=== PATIENT | male | born 1945 | race Hispanic/Latino ===

== ENCOUNTER 2022-03-31 09:34 | Outpatient (CLI) | payer MEDICARE ==
--- NOTE | 2022-03-31 12:18 | Ultrasound Report ---
US extremity nonvascular RT INDICATION / CLINICAL INFORMATION: ENLARGED LYMPH NODE. COMPARISON: None available. TECHNIQUE: Limited grayscale and color doppler imaging of the right groin area of concern. FINDINGS: Multiple lymph nodes are visualized in the right groin measuring up to 8 mm in short axis dimension w ith reniform morphology and prominent fatty sarah. IMPRESSION: 1. Multiple lymph nodes are visualized in the right groin area of concern without suspicious features or pathologic enlargement. Scribed by: Iris Calvin RDMS, BEN, CAITLIN Scribed: 03/31/2022 10:14 AM I have reviewed the images, agree with this report, and edited this report as needed. Signer Name: Donn Will MD Signed: 03/31/2022 12:14 PM Workstation Name: [id number]
== END 2022-03-31 09:35 | disposition home or self-care (01) ==
LOC: US 09:34
PROVIDERS: ATTEND Internal Medicine Cardiovascular Disease
DX: R59.9 Enlarged lymph nodes, unspecified (principal); I10 Essential (primary) hypertension; I25.10 Atherosclerotic heart disease of native coronary artery without angina pectoris; R07.2 Precordial pain; Z87.898 Personal history of other specified conditions; Z98.61 Coronary angioplasty status